=== PATIENT | female | born 1945 | race Caucasian/White ===

== ENCOUNTER 2016-12-19 05:44 | Inpatient (IN) | payer BC ==
--- NOTE | ~2016-12-19 | CN ---
Consultation Report [facility] [address] [place]. [address] NAME: CRISTINA VENTURA : 45 STATUS : ADM IN [facility]#: [id number] AGE: 71 ADM/REG DATE : 12/19/16 MR#: [id number] REPORT SERV DATE: 12/24/16 DICTATED BY: ALPHONSO GARNER DATE: 12/24/16 REPORT STATUS : Draft TRANSCRIBED BY: MODYury DATE: 12/24/16 CARDIOLOGY CONSULTATION NOTE DATE OF CONSULTATION: 12/24/2016 REASON FOR CONSULTATION: Atrial fibrillation with rapid ventricular response. HISTORY OF PRESENT ILLNESS: Ms Ventura is a 71-year-old woman with a history of chronic bronchitis and chronic atrial fibrillation. The patient is followed by Dr. Oneal Arellano in Cardiology Clinic. The patient has no other history of coronary heart disease or valvular heart disease. The patient was admitted to [facility] on 12/19/2016 with a chief complaint of dyspnea and wheezing. The patient was also having a chronic nonproductive cough. She was found to be relatively hypoxic at the time of presentation with oxygen saturations less than 90%. She was admitted for treatment of exacerbation of chronic bronchitis. The patient has been treated with steroids as well as nebulizers, likely including a beta agonist. She reports that she overall feels improved, though she continues to have diffuse wheezing and exertional dyspnea. She denies chest pain, palpitations, dizziness, or syncope. PAST MEDICAL HISTORY: 1. Chronic atrial fibrillation. 2. Chronic bronchitis. 3. Dyslipidemia. 4. Hypertension. PAST SURGICAL HISTORY: This is significant for breast augmentation surgery, breast biopsy, hysterectomy. FAMILY HISTORY: The patient's father of complications related to congestive heart failure. There is no other known family history of coronary heart disease or sudden cardiac . SOCIAL HISTORY: The patient has a distant history of cigarette smoking, but stopped smoking about 30 years ago. She has no known history of alcohol or drug abuse. ALLERGIES: THE PATIENT HAS NO KNOWN MEDICATION ALLERGIES. HOME MEDICATIONS: 1. ProAir inhaler two inhalations every four hours as needed for shortness of breath. 2. Eliquis 5 mg p.o. twice daily. 3. Claritin 10 mg p.o. daily. Consultation Report [facility] [address] [place]. [address] NAME: CRISTINA VENTURA : 45 STATUS : ADM IN PAT#: [id number] AGE: 71 ADM/REG DATE : 12/19/16 MR#: [id number] REPORT SERV DATE: 12/24/16 DICTATED BY: ALPHONSO GARNER DATE: 12/24/16 REPORT STATUS : Draft TRANSCRIBED BY: DYLAN DATE: 12/24/16 4. Metoprolol tartrate 50 mg p.o. twice daily. 5. Singulair 10 mg p.o. q.h.s. 6. Simvastatin 5 mg p.o. q.h.s. 7. Fiber supplement three tablets daily. REVIEW OF SYSTEMS: A complete 12-system review was performed. This is noncontributory except for the pertinent positives and negatives as noted in the history of present illness above. PHYSICAL EXAMINATION: VITAL SIGNS: Temperature is 97.9 degrees Fahrenheit, blood pressure is 138/61 mmHg, heart rate is currently variable between 100 and 150 beats per minute, respirations 20, oxygen saturation is 96% on a 2 L nasal cannula. GENERAL: The patient is an overweight white woman who appears mildly fatigued, but is otherwise awake, alert, and in no acute distress. The patient is able to speak in complete sentences. EYES: PERRL, EOMI, clear conjunctiva. HEAD/MNT: NCAT with moist mucous membranes and grossly normal hard and soft palate. NECK: Supple with no obvious thyromegaly or lymphadenopathy CARDIOVASCULAR: There is an irregularly irregular rhythm with a variable S1 and a physiologically split second heart sound. The jugular venous pressure appears to be at the upper limit of normal at 8 cm. No significant murmurs, rubs, or gallops are noted. PULMONARY: There is globally decreased air movement with diffuse expiratory wheezing noted. No rales or rhonchi are noted. ABDOMINAL: Soft, non-tender, non-distended with no hepatosplenomegaly noted. EXTREMITIES: There is trace to 1+ pitting edema of the ankles bilaterally. No significant clubbing or cyanosis is seen. MUSCULOSKELETAL: Grossly normal strength and range of motion in all extremities INTEGUMENTARY: Skin appears intact with no bruises, wounds or active lesions noted NEURO/PSYC: Alert and oriented x3, with no dysarthria, facial droop or lateralizing weakness noted. STUDIES: 12-lead EKG: The patient apparently has not had a 12-lead EKG performed during this hospital admission. Her most recent EKG reveal from Cardiology Clinic from 12/06/2015 shows atrial fibrillation with a ventricular rate of 73 beats per minute. A low voltage QRS, is seen in the limb leads. There are no other significant changes. There is poor anterior R- wave progression. LABORATORY DATA: CBC shows a white blood cell count of 10.5, hemoglobin 13.9, hematocrit 41.1, platelets 189. Metabolic profile shows a sodium of 139, potassium 3.6, chloride of 104, CO2 of 25, BUN 14, creatinine 0.88, glucose 102. Albumin is 3.3. CHEST X-RAY: The chest x-ray is somewhat limited by the presence of bilateral breast implants with calcification. The lungs appear to be grossly clear, though mild pulmonary vascular congestion cannot be excluded. Consultation Report [address] [place]. [address] NAME: CRISTINA VENTURA : 45 STATUS : ADM IN [facility]#: [id number] AGE: 71 ADM/REG DATE : 12/19/16 MR#: [id number] REPORT SERV DATE: 12/24/16 DICTATED BY: ALPHONSO GARNER DATE: 12/24/16 REPORT STATUS : Draft TRANSCRIBED BY: DYLAN DATE: 12/24/16 ASSESSMENT AND PLAN: 1. Atrial fibrillation with rapid ventricular response: The patient may be having beta neelam withdrawal from the discontinuation of her home dose of metoprolol. The patient has been tolerating this on an outpatient basis, and I feel this cardioselective beta neelam would be unlikely to further exacerbate the patient's chronic bronchitis. We will discontinue Bystolic and restart metoprolol tartrate 50 mg p.o. twice daily. We will increase as necessary to achieve a resting heart rate on an average less than 120 beats per minute. If possible, consider substitution of Xopenex for albuterol to reduce tachycardia from this beta agonist. We will send thyroid function studies. A transthoracic echocardiogram will be ordered, as the patient's last study was performed in the year 2011. The patient will continue on Eliquis for stroke prophylaxis. 2. History of coronary disease: The patient does have nonocclusive coronary disease diagnosed by cardiac catheterization in the year 2011. She has had no significant coronary stenosis, however, and no history of stenting or bypass surgery. Thank you for allowing me to participate in the care of Ms Ventura. Dr. Arellano will continue to follow the patient during this hospitalization. CHEO/DYLAN Alphonso Garner MD / [id number] CC: MD Alphonso Weldon II, M.D.
--- NOTE | ~2016-12-19 | DS ---
Discharge Summary [facility] [address] [place]. [address] NAME: CRISTINA VENTURA : 45 STATUS : DIS IN PAT#: [id number] AGE: 71 ADM/REG DATE : 12/19/16 MR#: [id number] REPORT SERV DATE: 12/27/16 DICTATED BY: ALPHONSO RAUSCH DATE: 12/26/16 REPORT STATUS : Draft TRANSCRIBED BY: MODL DATE: 12/26/16 ADMISSION DATE: 12/19/2016 DISCHARGE DATE: 12/26/2016 This dictation is in addition to discharge summary dictated by me on 12/24/2016. The patient was scheduled for discharge on 12/24/2016; however, prior to discharge the patient went to take a shower and upon coming back from the shower and being placed on monitor again. The patient was noted to be in atrial fibrillation with RVR. She was already being anticoagulated with Eliquis. The patient initially was on beta neelam; however, upon admission her metoprolol was held due to concerns for beta-neelam being contraindicated in asthma exacerbation. Given the development of atrial fibrillation with RVR, Cardiology was reconsulted. For further details please refer to their note dictated on 12/24/2016. Per Cardiology evaluation, it was determined that the patient was having beta blockade withdrawal and given that the patient had been on medication for a while Cardiology felt that the patient could tolerate a beta neelam and the patient was started back on metoprolol tartrate p.o. b.i.d. status post re-initiation of beta blockade. The patient's heart rate became controlled. Per Cardiology recommendations, a TTE was ordered which noted the patient with normal systolic LV and LV function. The patient has remained hemodynamically stable with her atrial fibrillation being rate controlled. She reports significant improvement in her symptoms and denied any palpitations. Given resolution of her symptoms and given her hemodynamic stability, the patient will therefore be discharged. Also at the time of my evaluation today, the patient reported that she had been on simvastatin for a long time and wanted explanation on why her simvastatin was being switched to atorvastatin. I explained to the patient that according to ACC/AHA guidelines, the patient's ASCVD score was 26.3, putting her at a high risk for atherosclerotic cardiovascular disease and stroke. I also educated the patient that according to ACC/AHA guidelines once the patient have elevated ASCVD score recommendation is for the patient is to be placed on high-intensity statin which in this case, I decided to use atorvastatin 40 mg p.o. daily. This was explained to the patient and she voiced understanding. All other information in the discharge summary remains the same. Greater than 30 minutes were spent on patient education, patient counseling, coordination of discharge, medication reconciliation, and dictation of note. TJ/DYLAN Alphonso Rausch MD / [id number] CC: Alphonso Rausch MD Discharge Summary [address] [address] NAME: CRISTINA VENTURA : 45 STATUS : DIS IN PAT#: [id number] AGE: 71 ADM/REG DATE : 12/19/16 MR#: [id number] REPORT SERV DATE: 12/27/16 DICTATED BY: ALPHONSO RAUSCH DATE: 12/26/16 REPORT STATUS : Draft TRANSCRIBED BY: DYLAN DATE: 12/26/16 Alphonso Simmons II, M.D.
--- NOTE | ~2016-12-19 | DS ---
Discharge Summary [facility] [address] [place]. [address] NAME: CRISTINA VENTURA : 45 STATUS : ADM IN PAT#: [id number] AGE: 71 ADM/REG DATE : 12/19/16 MR#: [id number] REPORT SERV DATE: 12/25/16 DICTATED BY: ALPHONSO RAUSCH DATE: 12/24/16 REPORT STATUS : Draft TRANSCRIBED BY: MODL DATE: 12/24/16 ADMISSION DATE: 12/19/2016 DISCHARGE DATE: This dictation is in addition to interim discharge summary dictated by Dr. Polanco on 12/22/2016. I assumed care of the patient on 12/23/2016. At the time of my assumption of care, the patient was hemodynamically stable; however, was still having some shortness of breath with wheezing. The patient was continued on management including DuoNebs. The patient has significantly improved with resolution of wheezing and the patient states that she has returned to baseline. Given resolution of symptoms the patient will be discharged home today. Plan has been discussed with the patient, who voices understanding and is agreeable with this plan. DISCHARGE DIAGNOSES: 1. Asthma exacerbation. 2. Acute hypoxic respiratory failure. 3. Atrial fibrillation. 4. Hypertension. 5. Dyslipidemia. 6. Obesity. DISCHARGE PHYSICAL EXAMINATION: GENERAL: The patient lying in bed, in no acute distress. Appears stated age. HEENT: Normocephalic and atraumatic. Extraocular motors intact. Moist oral mucosa. NECK: Trachea midline and symmetric. No JVD noted. CHEST: Nontender to palpation. CARDIOVASCULAR: Irregularly irregular rate and rhythm. LUNGS: Clear to auscultation bilaterally. No wheezing. No rhonchi. No rales. ABDOMEN: Obese. Positive bowel sounds. Nontender. Nondistended. NEURO: Alert and oriented x3. No focal deficits appreciated. DISCHARGE MEDICATIONS: 1. Eliquis 5 mg p.o. twice a day. 2. Loratadine 10 mg p.o. daily. 3. Singulair 10 mg p.o. at bedtime. 4. Lopressor 50 mg p.o. twice a day. 5. Atorvastatin 40 mg p.o. twice a day. DISPOSITION: The patient will be discharged home to follow up with her primary care physician in five to seven days. ACTIVITY: As tolerated. DIET: Regular diet. Greater than 30 minutes were spent coordinating discharge, dictation of note, discussion of Discharge Summary [address] [place]. [address] NAME: CRISTINA VENTURA : 45 STATUS : ADM IN PAT#: [id number] AGE: 71 ADM/REG DATE : 12/19/16 MR#: [id number] REPORT SERV DATE: 12/25/16 DICTATED BY: ALPHONSO RAUSCH DATE: 12/24/16 REPORT STATUS : Draft TRANSCRIBED BY: DYLAN DATE: 12/24/16 case with nurse and case management. TJ/DYLAN Alphonso Rausch MD / [id number] CC: MD Alphonso [place] II, M.D.
--- NOTE | ~2016-12-19 | IDS ---
Interim Discharge Summary [facility] [address] [place]. [address] NAME: CRISTINA VENTURA : 45 STATUS : ADM IN [facility]#: [id number] AGE: 71 ADM/REG DATE : 12/19/16 MR#: [id number] REPORT SERV DATE: 12/23/16 DICTATED BY: ANDREW RAY DATE: 12/22/16 REPORT STATUS : Draft TRANSCRIBED BY: MODL DATE: 12/22/16 ADMISSION DATE: 12/19/2016 DISCHARGE DATE: DATE OF INTERIM DISCHARGE: 12/22/2016 REASON FOR ADMISSION: Shortness of breath. PROCEDURES DONE: 12/19/2016, chest x-ray: Lungs clear. Mild cardiomegaly, stable. Calcified breast implant overlies the right chest wall. HISTORY OF HOSPITAL STAY: A 71-year-old white female, past medical history of AFib, on Eliquis; hypertension; seasonal allergies; hypercholesterolemia; presenting with shortness of breath. Patient has had an exacerbation of shortness of breath from pollen exposure. Subsequently, patient has been having asthma exacerbation from pollen exposure. Patient subsequently was admitted and was started on IV steroids. Unfortunately, patient started having anxiety in fact secondary to steroids. Patient was amiable in staying in the hospital when the steroids were switched to 20 mg IV q.a.m. to allow patient for sleep. Fortunately, for the patient, she is responding to steroids, but unfortunately it is taking a lot longer. PRIMARY DIAGNOSES UPON DISCHARGE: 1. Shortness of breath secondary to asthma exacerbation. Continue steroids 20 mg IV with breathing treatments. The patient is slowly improving clinically. 2. Atrial fibrillation. Continue the Eliquis. JUAN/DYLAN Andrew Ray MD / [id number] CC: MD Giovanni Shen II, M.D.
--- NOTE | ~2016-12-19 | HP ---
History And Physical [place] [id number] [facility] [place]. [address] NAME: CRISTINA VENTURA : 45 STATUS : ADM Sandra PAT#: [id number] AGE: 71 ADM/REG DATE : 12/19/16 MR#: [id number] REPORT SERV DATE: 12/19/16 DICTATED BY: JAZMÍN HIRSCH DATE: 12/19/16 REPORT STATUS : Draft TRANSCRIBED BY: DYLAN DATE: 12/19/16 DATE OF ADMISSION: 12/19/2016 REASON FOR ADMISSION: Acute exacerbation of chronic bronchitis. HISTORY OF PRESENT ILLNESS: This is a 71-year-old white female with exposure to cigarette smoke from childhood; the father having heavy cigarette smoking. She quit smoking about 30 years ago. She has annual exacerbations of bronchitis. Neighbors cut the yard, pollen count has been very high, over 500 the last two days, with little rain in the spring with things blooming. She had increasing cough and shortness of breath. She has coughing spells that are unquieted. She had a coughing spell through the night and increasing shortness of breath, came to the emergency room, oxygen saturation was less than 90%. She was admitted to the observation unit to see if we can help these problems. She is followed by Dr. Giovanni Simmons as an outpatient, has not seen him. No new medications. She did see a skate boarder, Dr. Montes, last year for this. PAST MEDICAL HISTORY: She had a hysterectomy and breast biopsy in the past but has not been to the hospital very much recently. She does see Dr. Oneal Arellano for her atrial fibrillation. He has started her on Eliquis. SOCIAL HISTORY: She is . Lives with her who is undergoing chemotherapy and radiation therapy for cancer of the base of the tongue. She does not smoke or drink. She lives in [place] in the [facility] and attends [employer] [facility]. She is many years and has 3 children who are all alive and well. She has swelling of her legs. She has been sitting in the waiting room for extended periods of time with this. Therefore, her legs are swollen some. Her legs swell sometimes at home anyway. In the emergency room, she got Solu-Medrol 125 mg IV and Lasix 40 mg IV. She is breathing somewhat better after aerosol treatment. MEDICATIONS: Her home medications include the following: Albuterol inhaler two puffs every four hours as needed, Eliquis 5 mg p.o. b.i.d., loratadine 10 mg p.o. daily, metoprolol 50 mg p.o. b.i.d., Singulair 10 mg p.o. daily, simvastatin 5 mg at bedtime, and fiber over the counter 1 daily. ALLERGIES: NONE ARE KNOWN. FAMILY HISTORY: Father of congestive heart failure and smoked cigarettes excessively. She has one brother and one sister, both alive and well. No particular diseases known to run in the family. REVIEW OF SYSTEMS: She had a cough. No fever, chills, or night sweats. No sputum production, she just has History And Physical [address] [place]. [address] NAME: CRISTINA VENTURA : 45 STATUS : ADM Sandra PAT#: [id number] AGE: 71 ADM/REG DATE : 12/19/16 MR#: [id number] REPORT SERV DATE: 12/19/16 DICTATED BY: JAZMÍN HIRSCH DATE: 12/19/16 REPORT STATUS : Draft TRANSCRIBED BY: DYLAN DATE: 12/19/16 cough for the most part. She has had no melena, hematemesis, fits, seizures, convulsions, unilateral weakness, nausea, vomiting, or diarrhea. She has never had a heart attack. She does have the atrial fibrillation which is chronic, she has had it for about the last 5 years and is followed by Dr. Arellano for this. The swelling in the lower extremities is unusual and likely postural and exacerbated by the COPD exacerbation here as well. The remainder of the review of systems is negative. PHYSICAL EXAMINATION: GENERAL: A white female looking slightly older than stated age. In no acute distress. VITAL SIGNS: Oxygen saturation 89 to 93 during interview. Blood pressure 193/97 initially with a heart rate of 74, respiratory rate of 22, and oxygen saturation initially 90% HEENT: EOMI. Sclerae clear. Conjunctivae pink. NECK: No bruit. No JVD. Pharynx clear. CHEST: Rhonchi, wheezes, and inspiratory squeaks throughout, right lung greater than the left. HEART: Irregularly irregular. BREASTS: Grossly without mass. ABDOMEN: Soft, nontender. Bowel sounds positive. No HSM. EXTREMITIES: 3+ pitting edema at the ankles with distal pulses palpable through this. NEUROLOGIC: She withdraws to plantar stimulation. Sheet [employer] Installer is equal and symmetric bilaterally. Coordination intact. She has no tremor. She is symmetric and equal neurologically bilaterally. LYMPHATICS: There is no adenopathy palpable. SKIN: Without rash, ecchymosis, or bruising. LABORATORY DATA: Her BNP was 155. The CMP showed a creatinine of 1.23. Sodium 141 and potassium 3.98. Liver tests normal. Troponin less than 0.02. The hemoglobin was 14.5, hematocrit of 44.6, white count of 9.5, and platelets of 154,000. Chest x-ray was done this morning and has not been read yet. My review of the chest x-ray shows basilar atelectasis on the right side with a cardiomegaly. This is a slightly underpenetrated film. The diaphragmatic angles are cut off. There is some cephalization of flow but no increase in the diameter of the pulmonary vasculature. ASSESSMENT: 1. Chronic obstructive pulmonary disease, acute exacerbation, chronic bronchitis type. 2. Atrial fibrillation with controlled ventricular response, 5 years' duration, followed by Dr. Arellano. 3. Coagulopathy, on Eliquis. 4. Chronic seasonal allergies. 5. Pollen and cut grass exposure exacerbating the problem. 6. Leg edema. History And Physical [address] [address] NAME: CRISTINA VENTURA : 45 STATUS : ADM Sandra PAT#: [id number] AGE: 71 ADM/REG DATE : 12/19/16 MR#: [id number] REPORT SERV DATE: 12/19/16 DICTATED BY: JAZMÍN HIRSCH DATE: 12/19/16 REPORT STATUS : Draft TRANSCRIBED BY: DYLAN DATE: 12/19/16 PLAN: She got a diuretic already. We will intensify the aerosol treatments, add prednisone. We will go ahead and add antibiotics, Rocephin and Zithromax for this, as well though these may be discontinued earlier than others. A five-day course of prednisone is probably advisable. We will check a procalcitonin level, continue the antibiotics if that is elevated; this should be a fairly abbreviated hospital course. DB/MODL Jazmín Hirsch M.D. / [id number] CC: Avery Gleason Jr, MD Mark Thel, M.D. John Tapp II, M.D.
[~2016-12-19 05:44] MED LIST: ASAB PO; C5 PO; LOP25 PO
[2016-12-19 05:58] LABS: BASOPHILS 0.5 %; BASOPHILS ABSOLUTE 0.05 10/3/uL (0.0-0.16); EOSINOPHILS 15.4 %; EOSINOPHILS ABSOLUTE 1.46 10/3/uL (0.0-0.53); ER CBC TAT 0 Hrs 11 Mins; HEMATOCRIT 44.6 % (36.0-48.0); HEMOGLOBIN 14.5 g/dL (12.0-16.0); IMMATURE GRANULOCYTES 0.2 %; IMMATURE GRANULOCYTES ABSOLUTE 0.02 10/3/uL (0.0-0.11); LYMPHOCYTES 16.6 %; LYMPHOCYTES ABSOLUTE 1.57 10/3/uL (0.67-4.30); MEAN CORPUS HGB CONC 32.5 g/dL (32.0-36.0); MEAN CORPUSCULAR HEMOGLOB 30.9 pg (26.0-34.0); MEAN CORPUSCULAR VOLUME 94.9 fL (80-100); MEAN PLATELET VOLUME 10.9 fL (9.2-13.0); MONOCYTES 8.8 %; MONOCYTES ABSOLUTE 0.83 10/3/uL (0.21-1.20); NEUTROPHILS 58.5 %; NEUTROPHILS ABSOLUTE 5.54 10/3/uL (2.02-8.40); PLATELET COUNT 154 10/3/uL (150-400); RBC DISTRIBUTION WIDTH 13.3 % (12.0-16.0); WHITE BLOOD CELLS 9.5 10/3/uL (4.5-10.5)
[2016-12-19 06:01] LABS: MANUAL DIFF NO %
[2016-12-19 06:11] LABS: ALBUMIN 3.7 G/DL (3.5-5.0); ALKALINE PHOSPHATASE 90 U/L (45-117); CALCIUM, SERUM 8.2 MG/DL (8.5-10.4); CHLORIDE, SERUM 104 MMOL/L (96-112); CREATININE 1.23 MG/DL (0.55-1.02); GFR AFRICAN AMERICAN 51 ML/MIN (>=60); GFR NON AFRICAN AMERICAN 44 ML/MIN (>=60); GLOBULIN 3.8 G/DL (2.5-4.1); POTASSIUM, SERUM 3.8 MMOL/L (3.5-5.3); SGOT(AST) 16 U/L (5-40); SGPT(ALT) 22 U/L (5-65); SODIUM, SERUM 141 MMOL/L (135-148); TOTAL BILIRUBIN 1.1 MG/DL (0-1.2); TOTAL PROTEIN 7.5 G/DL (6.0-8.5); TROPONIN I <0.02 NG/ML (<0.05)
[2016-12-19 06:13] LABS: BUN (BLOOD UREA NITROGEN) 22 MG/DL (6-23); CO2 (CARBON DIOXIDE) 25 MMOL/L (24-34); GLUCOSE, SERUM 112 MG/DL (60-99)
[2016-12-19] MEDS ORDERED: LOP50 PO (08:21)
[2016-12-19] MEDS ORDERED: ELIQUIS 5 MG TAB5 MG PO (08:22)
[2016-12-19] MEDS ORDERED: ZOCOR5 MG PO (08:22)
[2016-12-19] MEDS ORDERED: PROAIR HFA (08:22)
[2016-12-19] MEDS ORDERED: SINGULAIR1 PO (08:22)
[2016-12-19] MEDS ORDERED: FIBER PO (08:23)
[2016-12-19] MEDS ORDERED: CLARIT10 PO (08:23)
[2016-12-19 13:34] LABS: PROCALCITONIN <0.05 ng/mL (<0.5)
[2016-12-20 05:57] LABS: BUN (BLOOD UREA NITROGEN) 20 MG/DL (6-23); CHLORIDE, SERUM 97 MMOL/L (96-112); CO2 (CARBON DIOXIDE) 24 MMOL/L (24-34); CREATININE 1.24 MG/DL (0.55-1.02); GFR AFRICAN AMERICAN 51 ML/MIN (>=60); GFR NON AFRICAN AMERICAN 44 ML/MIN (>=60); POTASSIUM, SERUM 3.2 MMOL/L (3.5-5.3)
[2016-12-20 05:59] LABS: CALCIUM, SERUM 9.2 MG/DL (8.5-10.4); GLUCOSE, SERUM 163 MG/DL (60-99); SODIUM, SERUM 133 MMOL/L (135-148)
[2016-12-20 13:51] LABS: BE (BASE EXCESS) 0.1 MEQ/L (0 +/- 2.5); HCO3 (ACTUAL BICARBONATE) 23.2 MEQ/L (23-27); INSTRUMENT SERIAL # 35151; PCO2 (CO2 TENSION) 34 MMHG (35-45); PO2 (O2 TENSION) 71 MMHG (79-93); pH 7.46 (7.37-7.43)
[2016-12-20 13:52] LABS: ALLENS TEST Pos; CARBOXYHEMOGLOBIN 0.1 % (0-3); HEMOBLOGIN CONTENT 15.4 G/DL (12-16); METHEMOGLOBIN 0.5 % (0-3); O2 CONTENT 20.3 VOL% (18-24); SAMPLE Arterial
[2016-12-21 04:54] LABS: BASOPHILS 0.1 %; BASOPHILS ABSOLUTE 0.01 10/3/uL (0.0-0.16); EOSINOPHILS 0 %; HEMATOCRIT 42.6 % (36.0-48.0); HEMOGLOBIN 14.7 g/dL (12.0-16.0); IMMATURE GRANULOCYTES 0.2 %; IMMATURE GRANULOCYTES ABSOLUTE 0.03 10/3/uL (0.0-0.11); LYMPHOCYTES 9.5 %; LYMPHOCYTES ABSOLUTE 1.37 10/3/uL (0.67-4.30); MEAN CORPUSCULAR HEMOGLOB 30.9 pg (26.0-34.0); MEAN PLATELET VOLUME 10.6 fL (9.2-13.0); MONOCYTES 5.5 %; MONOCYTES ABSOLUTE 0.79 10/3/uL (0.21-1.20); NEUTROPHILS 84.7 %; NEUTROPHILS ABSOLUTE 12.26 10/3/uL (2.02-8.40); PLATELET COUNT 167 10/3/uL (150-400); RBC DISTRIBUTION WIDTH 13.6 % (12.0-16.0); RED CELL COUNT 4.75 10/6/uL (4.0-5.6)
[2016-12-21 04:55] LABS: MEAN CORPUS HGB CONC 34.5 g/dL (32.0-36.0); MEAN CORPUSCULAR VOLUME 89.7 fL (80-100); WHITE BLOOD CELLS 14.5 10/3/uL (4.5-10.5)
[2016-12-21 04:56] LABS: MANUAL DIFF NO %
[2016-12-21 05:14] LABS: A/G RATIO 1.1 (0.7-1.9); ALBUMIN 3.7 G/DL (3.5-5.0); BUN (BLOOD UREA NITROGEN) 20 MG/DL (6-23); CALCIUM, SERUM 8.6 MG/DL (8.5-10.4); CHLORIDE, SERUM 103 MMOL/L (96-112); CO2 (CARBON DIOXIDE) 25 MMOL/L (24-34); CREATININE 0.95 MG/DL (0.55-1.02); GFR AFRICAN AMERICAN 70 ML/MIN (>=60); GFR NON AFRICAN AMERICAN 60 ML/MIN (>=60); GLOBULIN 3.5 G/DL (2.5-4.1); GLUCOSE, SERUM 140 MG/DL (60-99); POTASSIUM, SERUM 4.2 MMOL/L (3.5-5.3); SGOT(AST) 25 U/L (5-40); SGPT(ALT) 23 U/L (5-65); SODIUM, SERUM 138 MMOL/L (135-148); TOTAL BILIRUBIN 0.8 MG/DL (0-1.2); TOTAL PROTEIN 7.2 G/DL (6.0-8.5)
[2016-12-21 05:17] LABS: ALKALINE PHOSPHATASE 78 U/L (45-117)
[2016-12-22 05:36] LABS: BASOPHILS 0.1 %; BASOPHILS ABSOLUTE 0.02 10/3/uL (0.0-0.16); EOSINOPHILS 0.3 %; EOSINOPHILS ABSOLUTE 0.05 10/3/uL (0.0-0.53); HEMATOCRIT 42.9 % (36.0-48.0); HEMOGLOBIN 14.6 g/dL (12.0-16.0); IMMATURE GRANULOCYTES 0.4 %; IMMATURE GRANULOCYTES ABSOLUTE 0.07 10/3/uL (0.0-0.11); LYMPHOCYTES 16.7 %; LYMPHOCYTES ABSOLUTE 2.64 10/3/uL (0.67-4.30); MEAN CORPUSCULAR HEMOGLOB 30.7 pg (26.0-34.0); MEAN CORPUSCULAR VOLUME 90.1 fL (80-100); MEAN PLATELET VOLUME 10.8 fL (9.2-13.0); MONOCYTES 10.7 %; MONOCYTES ABSOLUTE 1.69 10/3/uL (0.21-1.20); NEUTROPHILS 71.8 %; NEUTROPHILS ABSOLUTE 11.31 10/3/uL (2.02-8.40); PLATELET COUNT 182 10/3/uL (150-400); RBC DISTRIBUTION WIDTH 13.7 % (12.0-16.0); RED CELL COUNT 4.76 10/6/uL (4.0-5.6); WHITE BLOOD CELLS 15.8 10/3/uL (4.5-10.5)
[2016-12-22 05:38] LABS: MANUAL DIFF NO %
[2016-12-22 05:52] LABS: A/G RATIO 1.1 (0.7-1.9); ALBUMIN 3.5 G/DL (3.5-5.0); ALKALINE PHOSPHATASE 83 U/L (45-117); BUN (BLOOD UREA NITROGEN) 19 MG/DL (6-23); CALCIUM, SERUM 8.3 MG/DL (8.5-10.4); CHLORIDE, SERUM 102 MMOL/L (96-112); CO2 (CARBON DIOXIDE) 24 MMOL/L (24-34); CREATININE 0.88 MG/DL (0.55-1.02); GFR AFRICAN AMERICAN 77 ML/MIN (>=60); GFR NON AFRICAN AMERICAN 66 ML/MIN (>=60); GLOBULIN 3.2 G/DL (2.5-4.1); POTASSIUM, SERUM 3.5 MMOL/L (3.5-5.3); SGOT(AST) 26 U/L (5-40); SGPT(ALT) 26 U/L (5-65); SODIUM, SERUM 137 MMOL/L (135-148); TOTAL BILIRUBIN 0.8 MG/DL (0-1.2); TOTAL PROTEIN 6.7 G/DL (6.0-8.5)
[2016-12-22 05:54] LABS: GLUCOSE, SERUM 108 MG/DL (60-99); PHOSPHORUS, SERUM 1.8 MG/DL (2.5-4.5)
[2016-12-23 05:29] LABS: BASOPHILS 0.1 %; BASOPHILS ABSOLUTE 0.01 10/3/uL (0.0-0.16); EOSINOPHILS 1.7 %; EOSINOPHILS ABSOLUTE 0.19 10/3/uL (0.0-0.53); HEMATOCRIT 42.2 % (36.0-48.0); HEMOGLOBIN 14.3 g/dL (12.0-16.0); IMMATURE GRANULOCYTES 0.5 %; IMMATURE GRANULOCYTES ABSOLUTE 0.06 10/3/uL (0.0-0.11); LYMPHOCYTES 17.2 %; LYMPHOCYTES ABSOLUTE 1.95 10/3/uL (0.67-4.30); MANUAL DIFF NO %; MEAN CORPUS HGB CONC 33.9 g/dL (32.0-36.0); MEAN CORPUSCULAR HEMOGLOB 30.8 pg (26.0-34.0); MEAN CORPUSCULAR VOLUME 90.9 fL (80-100); MEAN PLATELET VOLUME 10.7 fL (9.2-13.0); MONOCYTES 12.8 %; MONOCYTES ABSOLUTE 1.45 10/3/uL (0.21-1.20); NEUTROPHILS 67.7 %; NEUTROPHILS ABSOLUTE 7.71 10/3/uL (2.02-8.40); PLATELET COUNT 177 10/3/uL (150-400); RBC DISTRIBUTION WIDTH 13.8 % (12.0-16.0); RED CELL COUNT 4.64 10/6/uL (4.0-5.6); WHITE BLOOD CELLS 11.4 10/3/uL (4.5-10.5)
[2016-12-23 05:43] LABS: ALBUMIN 3.4 G/DL (3.5-5.0); ALKALINE PHOSPHATASE 72 U/L (45-117); CALCIUM, SERUM 8.8 MG/DL (8.5-10.4); CHLORIDE, SERUM 103 MMOL/L (96-112); CO2 (CARBON DIOXIDE) 28 MMOL/L (24-34); CREATININE 0.92 MG/DL (0.55-1.02); GFR AFRICAN AMERICAN 73 ML/MIN (>=60); GFR NON AFRICAN AMERICAN 63 ML/MIN (>=60); GLOBULIN 3.3 G/DL (2.5-4.1); GLUCOSE, SERUM 97 MG/DL (60-99); POTASSIUM, SERUM 4.1 MMOL/L (3.5-5.3); SGOT(AST) 18 U/L (5-40); SGPT(ALT) 28 U/L (5-65); SODIUM, SERUM 139 MMOL/L (135-148); TOTAL PROTEIN 6.7 G/DL (6.0-8.5)
[2016-12-23 05:45] LABS: BUN (BLOOD UREA NITROGEN) 14 MG/DL (6-23); PHOSPHORUS, SERUM 2.4 MG/DL (2.5-4.5)
[2016-12-24 05:19] LABS: BASOPHILS 0 %; EOSINOPHILS 1.2 %; EOSINOPHILS ABSOLUTE 0.13 10/3/uL (0.0-0.53); HEMATOCRIT 41.1 % (36.0-48.0); HEMOGLOBIN 13.9 g/dL (12.0-16.0); IMMATURE GRANULOCYTES 0.5 %; IMMATURE GRANULOCYTES ABSOLUTE 0.05 10/3/uL (0.0-0.11); LYMPHOCYTES 20.1 %; MEAN CORPUS HGB CONC 33.8 g/dL (32.0-36.0); MEAN CORPUSCULAR HEMOGLOB 30.8 pg (26.0-34.0); MEAN CORPUSCULAR VOLUME 90.9 fL (80-100); MEAN PLATELET VOLUME 10.3 fL (9.2-13.0); MONOCYTES ABSOLUTE 1.05 10/3/uL (0.21-1.20); NEUTROPHILS 68.2 %; NEUTROPHILS ABSOLUTE 7.14 10/3/uL (2.02-8.40); PLATELET COUNT 189 10/3/uL (150-400); RBC DISTRIBUTION WIDTH 13.8 % (12.0-16.0); RED CELL COUNT 4.52 10/6/uL (4.0-5.6); WHITE BLOOD CELLS 10.5 10/3/uL (4.5-10.5)
[2016-12-24 05:20] LABS: MANUAL DIFF NO %
[2016-12-24 05:31] LABS: A/G RATIO 1.1 (0.7-1.9); ALBUMIN 3.3 G/DL (3.5-5.0); ALKALINE PHOSPHATASE 74 U/L (45-117); BUN (BLOOD UREA NITROGEN) 14 MG/DL (6-23); CALCIUM, SERUM 8.7 MG/DL (8.5-10.4); CHLORIDE, SERUM 104 MMOL/L (96-112); CO2 (CARBON DIOXIDE) 25 MMOL/L (24-34); CREATININE 0.88 MG/DL (0.55-1.02); GFR AFRICAN AMERICAN 77 ML/MIN (>=60); GFR NON AFRICAN AMERICAN 66 ML/MIN (>=60); GLOBULIN 3.1 G/DL (2.5-4.1); GLUCOSE, SERUM 102 MG/DL (60-99); POTASSIUM, SERUM 3.6 MMOL/L (3.5-5.3); SGOT(AST) 19 U/L (5-40); SGPT(ALT) 26 U/L (5-65); SODIUM, SERUM 139 MMOL/L (135-148); TOTAL BILIRUBIN 0.7 MG/DL (0-1.2); TOTAL PROTEIN 6.4 G/DL (6.0-8.5)
[2016-12-24] MEDS ORDERED: LIPITOR40 PO (15:28)
[2016-12-25 06:14] LABS: FREE T4 1.84 NG/DL (0.76-1.46)
[2016-12-25 06:17] LABS: ULTRASENSITIVE TSH 0.918 MCIU/ML (0.358-3.740)
[2016-12-26 05:35] LABS: BASOPHILS 0.2 %; BASOPHILS ABSOLUTE 0.02 10/3/uL (0.0-0.16); EOSINOPHILS 2.2 %; EOSINOPHILS ABSOLUTE 0.24 10/3/uL (0.0-0.53); HEMATOCRIT 42.8 % (36.0-48.0); HEMOGLOBIN 14.7 g/dL (12.0-16.0); IMMATURE GRANULOCYTES 1.2 %; IMMATURE GRANULOCYTES ABSOLUTE 0.13 10/3/uL (0.0-0.11); LYMPHOCYTES 24.8 %; LYMPHOCYTES ABSOLUTE 2.74 10/3/uL (0.67-4.30); MANUAL DIFF NO %; MEAN CORPUS HGB CONC 34.3 g/dL (32.0-36.0); MEAN CORPUSCULAR HEMOGLOB 31.1 pg (26.0-34.0); MEAN CORPUSCULAR VOLUME 90.7 fL (80-100); MONOCYTES 10.7 %; MONOCYTES ABSOLUTE 1.18 10/3/uL (0.21-1.20); NEUTROPHILS 60.9 %; NEUTROPHILS ABSOLUTE 6.76 10/3/uL (2.02-8.40); PLATELET COUNT 214 10/3/uL (150-400); RBC DISTRIBUTION WIDTH 13.3 % (12.0-16.0); RED CELL COUNT 4.72 10/6/uL (4.0-5.6); WHITE BLOOD CELLS 11.1 10/3/uL (4.5-10.5)
[2016-12-26 05:40] LABS: A/G RATIO 0.9 (0.7-1.9); ALBUMIN 3.1 G/DL (3.5-5.0); ALKALINE PHOSPHATASE 78 U/L (45-117); CALCIUM, SERUM 8.6 MG/DL (8.5-10.4); CHLORIDE, SERUM 99 MMOL/L (96-112); CO2 (CARBON DIOXIDE) 26 MMOL/L (24-34); GFR AFRICAN AMERICAN 66 ML/MIN (>=60); GFR NON AFRICAN AMERICAN 57 ML/MIN (>=60); GLOBULIN 3.4 G/DL (2.5-4.1); GLUCOSE, SERUM 84 MG/DL (60-99); POTASSIUM, SERUM 3.7 MMOL/L (3.5-5.3); SGOT(AST) 19 U/L (5-40); SGPT(ALT) 29 U/L (5-65); SODIUM, SERUM 133 MMOL/L (135-148); TOTAL BILIRUBIN 0.8 MG/DL (0-1.2); TOTAL PROTEIN 6.5 G/DL (6.0-8.5)
[2016-12-26 06:14] LABS: BUN (BLOOD UREA NITROGEN) 21 MG/DL (6-23)
[2016-12-26] MEDS ORDERED: LOP50 PO (10:21)
[2016-12-26] MEDS ORDERED: ZOCOR40 PO (10:22)
== END 2016-12-26 10:48 | disposition home or self-care (01) | DRG 189 ==
LOC: ER 05:44 → CDU1 07:53 → CDU2 08:15 → CDU1 09:13 → 7NO 12-22 01:25
PROVIDERS: Emergency Medicine; Hospitalist; Internal Medicine; Internal Medicine Cardiovascular Disease
DX: J96.01 Acute respiratory failure with hypoxia (principal); J44.1 Chronic obstructive pulmonary disease with (acute) exacerbation; I48.2 Chronic atrial fibrillation; J45.901 Unspecified asthma with (acute) exacerbation; E78.00 Pure hypercholesterolemia, unspecified; F41.9 Anxiety disorder, unspecified; T38.0X5A Adverse effect of glucocorticoids and synthetic analogues, initial encounter; I10 Essential (primary) hypertension; I25.10 Atherosclerotic heart disease of native coronary artery without angina pectoris; E78.5 Hyperlipidemia, unspecified; E66.9 Obesity, unspecified; Z90.710 Acquired absence of both cervix and uterus; Z87.891 Personal history of nicotine dependence; Z79.02 Long term (current) use of antithrombotics/antiplatelets; Z68.34 Body mass index [BMI] 34.0-34.9, adult
CPT/HCPCS: 36600; 71010; 80048; 80053; 82805; 82962; 83735; 83880; 84100; 84132; 84145; 84439; 84443; 84484; 85025; 85379; 87040; 87070; 87205; 93005; 93306; 94640; 96374; 96375; 99285; A9270-GY; J0360; J0456; J2920; J2930